=== PATIENT | male | born 1990 | race Caucasian/White ===

== ENCOUNTER 2019-02-09 04:45 | Emergency (ER) | payer SELFPAY ==
[~2019-02-09] VITALS: Ht 180.3 cm; Wt 81.2 kg
[2019-02-09 04:51] VITALS: BP 115/64; Ht 180.3 cm; Wt 81.2 kg
[2019-02-09] MEDS ORDERED: CYCLOBENZAPRINE10 MG PO (05:04)
== END 2019-02-09 05:20 | disposition home or self-care (01) ==
LOC: D.ER 04:45
DX: M54.9 Dorsalgia, unspecified (principal)

== ENCOUNTER 2019-04-04 17:11 | Emergency (ER) | payer MEDICAID ==
[~2019-04-04 17:11] MED LIST: CYCLOBENZAPRINE10 MG PO
== END 2019-04-04 18:20 | disposition left against medical advice (07) ==
LOC: D.ER 17:11
DX: R10.9 Unspecified abdominal pain (principal)

== ENCOUNTER 2019-05-25 01:43 | Emergency (ER) | payer OTHER ==
[~2019-05-25] VITALS: Ht 180.3 cm; Wt 80.9 kg
[2019-05-25 01:51] VITALS: Ht 180.3 cm; Wt 80.9 kg
[2019-05-25] MEDS ORDERED: METHOCARBAMOL500 MG PO (01:57)
[2019-05-25] MEDS ORDERED: NORCO-7.51 TAB PO (02:35)
[2019-05-25] MEDS ORDERED: AUGMENTIN 875-11 TAB PO (02:35)
[2019-05-25 02:56] VITALS: BP 126/58
== END 2019-05-25 02:59 | disposition home or self-care (01) ==
LOC: D.ER 01:43
DX: L03.012 Cellulitis of left finger (principal)

== ENCOUNTER 2019-05-27 02:50 | Emergency (ER) | payer OTHER ==
[~2019-05-27] VITALS: Ht 180.3 cm; Wt 79.5 kg
[~2019-05-27 02:50] MED LIST changes: +AUGMENTIN 875-11 TAB PO; +METHOCARBAMOL500 MG PO; +NORCO-7.51 TAB PO
[2019-05-27 02:55] VITALS: Ht 180.3 cm; Wt 79.5 kg
[2019-05-27 03:50] VITALS: BP 117/71
== END 2019-05-27 03:50 | disposition home or self-care (01) ==
LOC: D.ER 02:50
DX: S01.111A Laceration without foreign body of right eyelid and periocular area, initial encounter (principal); W19.XXXA Unspecified fall, initial encounter; Y93.9 Activity, unspecified; Y92.9 Unspecified place or not applicable

== ENCOUNTER 2019-11-04 17:35 | Emergency (ER) | payer OTHER ==
[~2019-11-04] VITALS: Ht 180.3 cm; Wt 80.9 kg
[2019-11-04 17:44] VITALS: BP 133/72; Ht 180.3 cm; Wt 80.9 kg
== END 2019-11-04 19:30 | disposition left against medical advice (07) ==
LOC: D.ER 17:35
DX: T14.8XXA Other injury of unspecified body region, initial encounter (principal); X58.XXXA Exposure to other specified factors, initial encounter

== ENCOUNTER 2019-12-29 23:23 | Emergency (ER) | payer OTHER ==
[~2019-12-29] VITALS: Ht 180.3 cm; Wt 77.3 kg
[2019-12-29 23:38] VITALS: BP 126/70; Ht 180.3 cm; Wt 77.3 kg
[2019-12-30] MEDS ORDERED: ERYTHROMYCIN OPT1 GM LEFT EYE (00:10)
[2019-12-30] MEDS ORDERED: DICLOFENAC SODI50 MG PO (00:12)
== END 2019-12-30 00:59 | disposition home or self-care (01) ==
LOC: D.ER 23:23
DX: H10.212 Acute toxic conjunctivitis, left eye (principal); S05.02XA Injury of conjunctiva and corneal abrasion without foreign body, left eye, initial encounter; X58.XXXA Exposure to other specified factors, initial encounter